=== PATIENT | male | born 1945 | race Caucasian/White ===

== ENCOUNTER 2018-09-22 01:14 | Inpatient (IN) | payer OTHER | END 2018-09-25 19:30 | LOC: TELE-EAST 09-24 13:01 → ER 01:14 → OVERFLOW 05:46 | PROC: B2111ZZ Fluoroscopy of Multiple Coronary Arteries using Low Osmolar Contrast (ICD-10-PCS; principal; ~2018-09-22) | PROC: 02703ZZ Dilation of Coronary Artery, One Artery, Percutaneous Approach (ICD-10-PCS; ~2018-09-22) | DX: I21.4 Non-ST elevation (NSTEMI) myocardial infarction (principal); E11.10 Type 2 diabetes mellitus with ketoacidosis without coma; N17.0 Acute kidney failure with tubular necrosis; G92 Toxic encephalopathy; J18.9 Pneumonia, unspecified organism; E87.1 Hypo-osmolality and hyponatremia; M46.90 Unspecified inflammatory spondylopathy, site unspecified; E11.22 Type 2 diabetes mellitus with diabetic chronic kidney disease; N18.9 Chronic kidney disease, unspecified; I13.10 Hypertensive heart and chronic kidney disease without heart failure, with stage 1 through stage 4 chronic kidney disease, or unspecified chronic kidney disease; Z98.61 Coronary angioplasty status; I25.10 Atherosclerotic heart disease of native coronary artery without angina pectoris; E86.0 Dehydration; R41.0 Disorientation, unspecified; Z91.19 Patient's noncompliance with other medical treatment and regimen ==

== ENCOUNTER 2019-03-07 15:49 | Inpatient (IN) | payer OTHER ==
[~2019-03-07] VITALS: Ht 167.6 cm; Wt 76.5 kg
[~2019-03-07 15:49] MED LIST: ASPI81CH43 PO; ATOR20TA50 PO; CLOP75TA28 PO; INSLANTI SC; INSREGI SC; LEVO500T21 PO
[2019-03-07] MEDS ORDERED: SODIUM CHLORIDE 0.9% 1,000 ML IV ONE ×3 (16:04→19:45)
[2019-03-07] MEDS ORDERED: InsuLIN REG 1unit/0.01ml Soln (100units/ml) IV ONE (16:15)
[2019-03-07 17:56] LABS: Basophils # (auto) 0 uL; Basophils % (auto) 0.6 % (0.0-2.0); Eosinophils # (auto) 0 uL; Eosinophils % (auto) 0.5 % (0.0-7.0); Hematocrit 46.7 % (41.0-53.0); Hemoglobin 15.8 g/dL (13.5-17.5); Lymphocytes # (auto) 0.9 uL; Lymphocytes % (auto) 11.1 % (10.0-50.0); Mean Corpuscular Hemoglobin 28.3 pg (28.0-32.0); Mean Corpuscular Hgb Conc. 33.8 g/dL (32.0-36.0); Mean Corpuscular Volume 83.6 fL (80.0-100.0); Monocytes # (auto) 0.7 uL; Monocytes % (auto) 8.1 % (0.0-12.0); Neutrophils # (auto) 6.4 uL; Neutrophils % (auto) 79.7 % (37.0-80.0); Platelet Count (auto) 167 10^3/uL (140-450); Red Blood Cells 5.59 10^6/uL (4.5-5.90); Red Cell Distribution Width 14.9 % (11.8-14.3)
[2019-03-07 17:57] LABS: Alanine Aminotransferase 22 U/L (16-61); Albumin 3.2 g/dL (3.4-5.0); Anion Gap 10 (5-15); Aspartate Aminotransferase 10 U/L (15-37); BUN/Creatinine Ratio 20.1; Blood Urea Nitrogen 32 mg/dL (7-18); Calcium 8.6 mg/dL (8.5-10.1); Carbon Dioxide 23 mmol/L (21-32); Chloride 100 mmol/L (98-107); GFR African American 55 mL/min; GFR Non-African American 45 mL/min; Potassium 4.5 mmol/L (3.5-5.1); Sodium 133 mmol/L (136-145)
[2019-03-07 18:02] LABS: Alkaline Phosphatase 121 U/L (45-117); Total Protein 7.1 g/dL (6.4-8.2)
[2019-03-07 18:10] LABS: Glucose 477 mg/dL (74-106)
[2019-03-07 18:23] LABS: INR 0.98 (0.9-1.15); Partial Thromboplastin Time 29.3 sec (23.64-32.05)
[2019-03-07] MEDS ORDERED: VANCOMYCIN PER PHARMACY IV SCH (19:45)
[2019-03-07] MEDS ORDERED: MORPHINE SULF INJ 2 MG/ML SYRINGE 1ML IV PRN (19:45)
[2019-03-07] MEDS ORDERED: NITROGLYCERIN 0.4 MG SL TAB SL PRN (19:45)
[2019-03-07] MEDS ORDERED: DEXTROSE (50%) 50ML SYRG IV PRN (19:45)
[2019-03-07] MEDS: ACCU-CHEK COMFORT CURVE STRIP VI SCH ×2 (20:00→23:31)
[2019-03-07] MEDS: InsuLIN REG 1unit/0.01ml Soln (100units/ml) SC SCH ×2 (20:00→23:30)
[2019-03-07] MEDS ORDERED: cefTRIAXone 1GM/50ML D5W 50 ML IV ONE (21:15)
[2019-03-07 21:30] VITALS: BP 150/74
[2019-03-07] MEDS ORDERED: VANCOMYCIN 1GM/250ML 250 ML IV ONE (21:30)
--- NOTE | 2019-03-07 21:30 | NUR ---
Telemetry admit from ER MICHA SANDERS admitted to Telemetry unit after SBAR received. Patient oriented to LEONILA ASCENCIO RN primary RN, unit, room, bed, and unit policies regarding patient care and visiting hours. Patient now on continuous telemetry monitoring, tele box # [id number]. Patient placed on bedside oxygen, weighed by bedscale and encouraged to call if they need something. All questions and concerns addressed, patient verbalized understanding.
[2019-03-07] MEDS: FAMOTIDINE 20 MG TAB PO SCH (21:54)
[2019-03-07 22:00] VITALS: BP 150/74
[2019-03-07] MEDS ORDERED: ATORVASTATIN 20 MG TAB PO SCH (22:00)
--- NOTE | 2019-03-08 03:00 | NUR ---
Patient accidentally pulled out IV to left hand when he was sleeping. Patient turned in bed and felt his IV pull and his IV got caught on the blanket and pulled out. IV catheter fully intact. Pressure dressing applied to site. Patient refused to have another IV put in at this time and just wants to sleep.
[2019-03-08] MEDS: ACCU-CHEK COMFORT CURVE STRIP VI SCH ×5 (03:30→19:40)
[2019-03-08] MEDS: InsuLIN REG 1unit/0.01ml Soln (100units/ml) SC SCH ×5 (03:31→19:41)
[2019-03-08 05:00] VITALS: BP 138/58
--- NOTE | 2019-03-08 05:56 | NUR ---
IV insertion IV access obtained to left wrist, via clean sterile technique by inserting 22 gauge catheter after first attempt. IV secured properly. No trauma to site. Patient tolerated procedure well.
--- NOTE | 2019-03-08 07:35 | NUR ---
Opening Shift Note Assumed care of patient, awake and alert. No S/S of distress/SOB or pain. Instructed on POC and to call for assist PRN, will continue to monitor for changes Q1hr and PRN.
[2019-03-08 07:44] LABS: Basophils # (auto) 0 uL; Basophils % (auto) 0.2 % (0.0-2.0); Eosinophils # (auto) 0 uL; Eosinophils % (auto) 0.2 % (0.0-7.0); Hematocrit 44.4 % (41.0-53.0); Hemoglobin 15.3 g/dL (13.5-17.5); Lymphocytes # (auto) 0.9 uL; Lymphocytes % (auto) 10.5 % (10.0-50.0); Mean Corpuscular Hemoglobin 28.3 pg (28.0-32.0); Mean Corpuscular Hgb Conc. 34.4 g/dL (32.0-36.0); Mean Corpuscular Volume 82.3 fL (80.0-100.0); Monocytes # (auto) 0.7 uL; Monocytes % (auto) 8.4 % (0.0-12.0); Neutrophils # (auto) 6.7 uL; Neutrophils % (auto) 80.7 % (37.0-80.0); Nucleated Red Blood Cells % 0.2 %; Platelet Count (auto) 179 10^3/uL (140-450); Red Blood Cells 5.39 10^6/uL (4.5-5.90); Red Cell Distribution Width 14.9 % (11.8-14.3); White Blood Cell 8.2 10^3/uL (4.4-10.8)
[2019-03-08 08:07] LABS: Albumin 2.8 g/dL (3.4-5.0); BUN/Creatinine Ratio 17.7; Calcium 8.6 mg/dL (8.5-10.1)
[2019-03-08 08:53] VITALS: BP 135/73
[2019-03-08] MEDS ORDERED: cefTRIAXone 1GM/50ML D5W 50 ML IV SCH ×2 (09:00)
[2019-03-08 09:33] LABS: Bilirubin, Total 0.3 mg/dL (0.2-1.0); Total Protein 6.6 g/dL (6.4-8.2)
[2019-03-08] MEDS ORDERED: ASPirin 81 mg TAB PO SCH (10:00)
[2019-03-08] MEDS ORDERED: INSULIN LANTUS (GLARGINE) 1 /0.01ml (100units/ml) SC SCH (10:00)
[2019-03-08] MEDS ORDERED: CLOPIDOGREL BISULFATE 75 MG TAB PO SCH (10:00)
[2019-03-08] MEDS: FAMOTIDINE 20 MG TAB PO SCH (10:04)
[2019-03-08 13:00] VITALS: BP 141/74
--- NOTE | 2019-03-08 16:20 | NUR ---
Significant other at bedside. Concerned about patient's finger and would like to know what the plan of care for it is. Dr. Pollock will round on patient as per hospitalist.
--- NOTE | 2019-03-08 17:20 | NUR ---
Cardiology Clearance Phone call received from Dr. Sharp regarding patient. States that patient is cleared for discharge and to follow up in outpatient. To take care of finger before cardiology procedure.
[2019-03-08 17:25] VITALS: BP 156/84
[2019-03-08] MEDS ORDERED: LEVO500T21 PO (17:26)
[2019-03-08] MEDS ORDERED: CLIN300C8 PO (17:26)
--- NOTE | 2019-03-08 17:50 | NUR ---
Discharge Orders As per Dr. Moscoso, patient can be discharge home pending clearance from Dr. Pollock. Dr. Sharp already cleared. Medications already called in to 24 hours [facility].
--- NOTE | 2019-03-08 19:46 | NUR ---
Paged Dr. Pollock to inform of patient discharge and needed clearance from him per Dr. Navarrete before patient can be discharged.
--- NOTE | 2019-03-08 19:59 | NUR ---
Dr. Pollock returned page: Per MD, patient is cleared to be discharged and patient is to follow up in a week as an outpatient.
--- NOTE | 2019-03-08 20:14 | NUR ---
LAURA Neff called patient next of kin Nicol (sister in law) and notified her of patient's discharge. Patient will be going home via taxi.
--- NOTE | 2019-03-08 21:20 | NUR ---
Patient discharged with all his belongings. Patient Alert and oriented. Patient transported via wheel chair to taxi. Patient entered taxi with no complaints or distress. Family aware.
[2019-03-08] MEDS ORDERED: VANCOMYCIN 1GM/250ML 250 ML IV SCH (22:00)
--- NOTE | 2019-03-09 11:00 | NUR ---
New Prescription Received call from [facility] regarding patient not receiving prescription. As per MD on 03/11 it was called in to his pharmacy. Called back number ([phone]) to confirm pharmacy, no answer. Also called number listed in computer, no answer. Left message and is awaiting call back.
== END 2019-03-08 21:30 | disposition home health service (06) | DRG 637 ==
LOC: EDBD 15:49 → ER 15:58 → TELE 15:59 → TELE-WESTW 21:36
PROVIDERS: ADMIT Nurse Practitioner Acute Care; ATTEND Internal Medicine
DX: E11.65 Type 2 diabetes mellitus with hyperglycemia (principal); G93.41 Metabolic encephalopathy; L02.512 Cutaneous abscess of left hand; I42.9 Cardiomyopathy, unspecified; E44.1 Mild protein-calorie malnutrition; I13.0 Hypertensive heart and chronic kidney disease with heart failure and stage 1 through stage 4 chronic kidney disease, or unspecified chronic kidney disease; E11.22 Type 2 diabetes mellitus with diabetic chronic kidney disease; E11.51 Type 2 diabetes mellitus with diabetic peripheral angiopathy without gangrene; N18.3 Chronic kidney disease, stage 3 (moderate); I50.9 Heart failure, unspecified; I48.91 Unspecified atrial fibrillation; E78.5 Hyperlipidemia, unspecified; L03.012 Cellulitis of left finger; E86.0 Dehydration; I25.10 Atherosclerotic heart disease of native coronary artery without angina pectoris; Z95.5 Presence of coronary angioplasty implant and graft; Z95.0 Presence of cardiac pacemaker; Z79.4 Long term (current) use of insulin; Z82.49 Family history of ischemic heart disease and other diseases of the circulatory system; Z91.14 Patient's other noncompliance with medication regimen; Z79.02 Long term (current) use of antithrombotics/antiplatelets; Z79.82 Long term (current) use of aspirin; Z83.3 Family history of diabetes mellitus; Z68.27 Body mass index [BMI] 27.0-27.9, adult; I25.2 Old myocardial infarction; Z79.899 Other long term (current) drug therapy
CPT/HCPCS: 36415; 70450; 71045; 73200; 80053; 80061; 80202; 80320; 82962; 83036; 83605; 83880; 84484; 85025; 85610; 85730; 87040; 93005; 93306; 93926; 96361; 96374; G0378; J0696; J1815

== ENCOUNTER 2019-06-30 17:24 | Inpatient (IN) | payer OTHER ==
[~2019-06-30] VITALS: Ht 167.6 cm; Wt 73.0 kg
[~2019-06-30 17:24] MED LIST changes: +CLIN300C8 PO
[2019-06-30 21:26] LABS: Basophils # (auto) 0.1 uL; Basophils % (auto) 0.8 % (0.0-2.0); Eosinophils # (auto) 0 uL; Eosinophils % (auto) 0.3 % (0.0-7.0); Hematocrit 43.1 % (41.0-53.0); Hemoglobin 14.5 g/dL (13.5-17.5); Lymphocytes # (auto) 1.1 uL; Lymphocytes % (auto) 12.5 % (10.0-50.0); Mean Corpuscular Hemoglobin 28.1 pg (28.0-32.0); Mean Corpuscular Hgb Conc. 33.5 g/dL (32.0-36.0); Mean Corpuscular Volume 83.8 fL (80.0-100.0); Monocytes # (auto) 0.8 uL; Monocytes % (auto) 9.4 % (0.0-12.0); Platelet Count (auto) 215 10^3/uL (140-450); Red Blood Cells 5.15 10^6/uL (4.5-5.90); Red Cell Distribution Width 14.3 % (11.8-14.3); White Blood Cell 9.1 10^3/uL (4.4-10.8)
[2019-06-30 21:37] LABS: Alanine Aminotransferase 19 U/L (16-61); Albumin 3.1 g/dL (3.4-5.0); Anion Gap 8 (5-15); Aspartate Aminotransferase 13 U/L (15-37); BUN/Creatinine Ratio 22.9; Blood Urea Nitrogen 38 mg/dL (7-18); Calcium 8.7 mg/dL (8.5-10.1); Carbon Dioxide 23 mmol/L (21-32); Chloride 105 mmol/L (98-107); GFR African American 52 mL/min; GFR Non-African American 43 mL/min; Potassium 4.5 mmol/L (3.5-5.1); Sodium 136 mmol/L (136-145)
[2019-06-30 21:40] LABS: Alkaline Phosphatase 110 U/L (45-117); Bilirubin, Total 0.4 mg/dL (0.2-1.0); Total Protein 7.5 g/dL (6.4-8.2)
[2019-06-30 21:46] LABS: Glucose 425 mg/dL (74-106)
[2019-07-01] MEDS ORDERED: SODIUM CHLORIDE 0.9% 1,000 ML IV ONE ×2 (01:45→02:00)
[2019-07-01] MEDS ORDERED: InsuLIN REG 1unit/0.01ml Soln (100units/ml) IV ONE ×2 (01:45→02:15)
[2019-07-01] MEDS ORDERED: DEXTROSE (50%) 50ML SYRG IV PRN (05:45)
[2019-07-01] MEDS ORDERED: TEMAZEPAM 15 MG CAP PO PRN (05:45)
[2019-07-01] MEDS ORDERED: ONDANSETRON HCL 4 MG/2 ML VIAL IV PRN (05:45)
[2019-07-01] MEDS: ACCU-CHEK COMFORT CURVE STRIP VI SCH ×3 (06:48→19:11)
[2019-07-01] MEDS: InsuLIN REG 1unit/0.01ml Soln (100units/ml) SC SCH ×3 (06:54→18:00)
[2019-07-01 07:29] LABS: Urine Bacteria NONE SEEN /hpf (None Seen); Urine Blood Negative /uL (Negative); Urine Mucus FEW (None Seen); Urine Specific Gravity 1.019 (1.001-1.035); Urine WBC 26 /hpf (0 - 3)
[2019-07-01] MEDS ORDERED: FUROSEMIDE 20 MG TAB PO SCH (10:00)
[2019-07-01] MEDS ORDERED: ENOXAPARIN SOD 40 MG/0.4 ML SYRINGE SC SCH (10:00)
[2019-07-01] MEDS: ENOXAPARIN SOD 40 MG/0.4 ML SYRINGE SC SCH (11:27)
[2019-07-01] MEDS: ASPirin 81 mg TAB PO SCH (11:27)
[2019-07-01] MEDS: CLOPIDOGREL BISULFATE 75 MG TAB PO SCH (11:27)
[2019-07-01] MEDS: FAMOTIDINE 20 MG TAB PO SCH ×2 (11:27→22:00)
--- NOTE | 2019-07-01 13:16 | NUR ---
MED SURG admit from [facility] admitted to MED SURG unit. Patient educated on unit, room, bed, and unit policies regarding patient care and visiting hours. Pt oriented x3. Bed in lowest and locked position with side rails up x2 and call light in reach. Encouraged to call if they need something. All questions and concerns addressed, patient verbalized understanding.
[2019-07-01 13:50] VITALS: BP 143/76
[2019-07-01 14:00] VITALS: BP 143/76
--- NOTE | 2019-07-01 16:00 | NUR ---
ATTEMPT TO CALL PATIENT FAMILY PATIENT UNABLE TO GIVE PROPER HISTORY AND ADMISSION INFORMATION. RETRIEVED PHONE NUMBER FOR PATIENTS SISTER IN LAW VIA PREVIOUS ADMISSION. PHONE NUMBER RETRIEVED IS UNABLE TO CONNECT AND THE RN IS UNABLE TO MAKE CONTACT WITH PATIENT FAMILY.
--- NOTE | 2019-07-01 16:02 | NUR ---
CALLED [facility] RETRIEVED MED RECORDS FROM [facility].
[2019-07-01] MEDS ORDERED: INSULIN LANTUS (GLARGINE) 1 /0.01ml (100units/ml) SC ONE (16:30)
[2019-07-01] MEDS ORDERED: LEVOFLOXACIN 250MG 50 ML IV ONE (16:30)
--- NOTE | 2019-07-01 16:50 | NUR ---
GLUCOSE MONITOR UNABLE TO READ PATIENTS WRISTBAND. PT GLUCOSE READING AT 86.
[2019-07-01 17:00] VITALS: BP 123/69
[2019-07-01] MEDS ORDERED: hydrALAZINE HCL 20 MG/ML VL IV PRN (17:00)
--- NOTE | 2019-07-01 17:00 | NUR ---
SPOKE TO DR. Sherri PERDOMO NOTIFIED THAT THE PATIENTS GLUCOSE LEVELS 86. MD AWARE. NEW ORDERS RECEIVED, READ BACK AND VERIFIED TO HOLD LANUTS AT THIS TIME. ACCORDING TO MD, IF THE PATIENTS GLUCOSE IS GREATER THAN 150, THEN GIVE THE 1630 SCHEDULED LANTUS. WILL ENDORSE TO HUY SANCHEZ.
--- NOTE | 2019-07-01 17:40 | NUR ---
Alvarado catheter insertion Patient assessed and determined to be in need of alvarado catheter. Order obtained from DR. Sherri PERDOMO MD. Patient educated on catheter and reason for insertion. All questions answered. Alvarado catheter 16 guage Grenadian inserted with clean sterile technique. Patient tolerated well.
--- NOTE | 2019-07-01 17:40 | NUR ---
PT PLACED ON TELEMETRY MONITORING.
--- NOTE | 2019-07-01 17:45 | NUR ---
IV removal LEFT AC IV DC'd with clean sterile technique, catheter fully intact. Pressure dressing applied to site. Patient tolerated well.
--- NOTE | 2019-07-01 18:00 | NUR ---
URINE SAMPLE SENT TO LAB
[2019-07-01 18:47] LABS: Basophils # (auto) 0.1 uL; Basophils % (auto) 1.1 % (0.0-2.0); Eosinophils # (auto) 0 uL; Eosinophils % (auto) 0.6 % (0.0-7.0); Hematocrit 40.7 % (41.0-53.0); Hemoglobin 13.6 g/dL (13.5-17.5); Lymphocytes # (auto) 1.1 uL; Lymphocytes % (auto) 18.4 % (10.0-50.0); Mean Corpuscular Hemoglobin 28.1 pg (28.0-32.0); Mean Corpuscular Hgb Conc. 33.3 g/dL (32.0-36.0); Mean Corpuscular Volume 84.5 fL (80.0-100.0); Monocytes # (auto) 0.6 uL; Monocytes % (auto) 9.8 % (0.0-12.0); Neutrophils # (auto) 4.1 uL; Neutrophils % (auto) 70.1 % (37.0-80.0); Nucleated Red Blood Cells % 0.1 %; Platelet Count (auto) 188 10^3/uL (140-450); Red Blood Cells 4.82 10^6/uL (4.5-5.90); Red Cell Distribution Width 14.2 % (11.8-14.3); White Blood Cell 5.8 10^3/uL (4.4-10.8)
[2019-07-01 18:57] LABS: Anion Gap 11 (5-15); BUN/Creatinine Ratio 23.4; Blood Urea Nitrogen 29 mg/dL (7-18); Calcium 8.3 mg/dL (8.5-10.1); Carbon Dioxide 19 mmol/L (21-32); Chloride 108 mmol/L (98-107); GFR African American 73 mL/min; GFR Non-African American 60 mL/min; Glucose 105 mg/dL (74-106); Potassium 3.9 mmol/L (3.5-5.1); Sodium 138 mmol/L (136-145)
--- NOTE | 2019-07-01 19:30 | NUR ---
ENDORSED CARE TO NIGHT RNKORI. RN AWARE OF PT SITUATION AND DR. PERDOMO ORDERS FOR LANTUS IF THE PATIENTS GLUCOSE INCREASES. PT BED IN LOWEST AND LOCKED POSITION WITH SIDE RAILS UP X2, CALL LIGHT IN REACH AND BED ALARM ON.
[2019-07-01] MEDS ORDERED: FURO20TA3 PO (19:44)
[2019-07-01 20:00] VITALS: BP 140/57
--- NOTE | 2019-07-01 20:00 | NUR ---
Opening Shift Note Assumed care of patient, awake and alert. No S/S of distress/SOB or pain. Instructed on POC and to call for assist PRN, will continue to monitor for changes Q1hr and PRN.
[2019-07-01 21:49] VITALS: BP 140/57
[2019-07-01] MEDS: ATORVASTATIN 20 MG TAB PO SCH (23:12)
[2019-07-02] MEDS: InsuLIN REG 1unit/0.01ml Soln (100units/ml) SC SCH ×5 (00:26→17:48)
[2019-07-02] MEDS: ACCU-CHEK COMFORT CURVE STRIP VI SCH ×4 (00:26→17:48)
[2019-07-02 05:00] VITALS: BP 158/79
[2019-07-02 06:25] LABS: Basophils # (auto) 0.1 uL; Basophils % (auto) 1.4 % (0.0-2.0); Eosinophils # (auto) 0 uL; Eosinophils % (auto) 0.7 % (0.0-7.0); Hematocrit 38.7 % (41.0-53.0); Hemoglobin 13.3 g/dL (13.5-17.5); Lymphocytes # (auto) 1.3 uL; Lymphocytes % (auto) 21.3 % (10.0-50.0); Mean Corpuscular Hemoglobin 28.6 pg (28.0-32.0); Mean Corpuscular Hgb Conc. 34.3 g/dL (32.0-36.0); Mean Corpuscular Volume 83.3 fL (80.0-100.0); Monocytes # (auto) 0.7 uL; Monocytes % (auto) 11.6 % (0.0-12.0); Neutrophils # (auto) 3.9 uL; Nucleated Red Blood Cells % 0.1 %; Platelet Count (auto) 177 10^3/uL (140-450); Red Blood Cells 4.65 10^6/uL (4.5-5.90); Red Cell Distribution Width 13.9 % (11.8-14.3)
[2019-07-02 06:40] LABS: BUN/Creatinine Ratio 23.9; Calcium 8.4 mg/dL (8.5-10.1); Potassium 3.9 mmol/L (3.5-5.1)
--- NOTE | 2019-07-02 06:57 | NUR ---
Closing Note: Patient sleeping with his sheet over his face. He was informed that it was time for his accu-check. Patient adamantly refused
--- NOTE | 2019-07-02 07:20 | NUR ---
OPENING NOTE ASSUMED CARE OF PT. ALERT AND ORIENTED. NO S/S OF SOB/DISTRESS NOTED. PT DENIES ANY PAIN. SAFETY PRECAUTIONS IN PLACE. BED SET TO LOWEST POSITION/LOCKED. BEDSIDE RAILS UP X2. CALL LIGHT WITH IN REACH. SITTER AT BEDSIDE. INSTRUCTED PT TO CALL FOR ASSISTANCE. UPDATE ON POC. WILL CONTINUE TO MONITOR Q1HR AND PRN.
[2019-07-02 09:00] VITALS: BP 99/72
[2019-07-02] MEDS: ASPirin 81 mg TAB PO SCH (09:47)
[2019-07-02] MEDS: LEVOFLOXACIN 500MG 100 ML IV SCH (09:47)
[2019-07-02] MEDS: ENOXAPARIN SOD 40 MG/0.4 ML SYRINGE SC SCH (09:48)
[2019-07-02] MEDS: FAMOTIDINE 20 MG TAB PO SCH ×2 (09:48→21:13)
[2019-07-02] MEDS: CLOPIDOGREL BISULFATE 75 MG TAB PO SCH (09:48)
[2019-07-02] MEDS: INSULIN LANTUS (GLARGINE) 1 /0.01ml (100units/ml) SC SCH (10:21)
[2019-07-02] MEDS: ACETAMINOPHEN 325 MG TAB PO PRN (10:22)
--- NOTE | 2019-07-02 11:00 | NUR ---
WOUND CARE NOTE: Wound care in to see patient per wound care request regarding " scrotal area redness and skin risk score 12". Patient is 74 y/o male with admitting diagnosis of Uncontrolled DM, Failure To Thrive. Patient with history of A Fib, CAD, high lipids. Patient is resting in bed in Rm. 272A. He's awake, alert, able to follow simple direction but not fully oriented. He's able to assist in turning and repositioning and his current Shlomo score is 17. Skin assessment done with the assistance of patient' s nurse, LAURA Carson. No wound noted other than mild erythema to patient's scrotal and intragluteal fold consistent with intertriginous rash. Staff initiated cleaning and application of Barrier cream to sacrum and perineum per MD order. No pressure injury noted. Patient tolerated well, repositioned for comfort. Sitter at bedside. No further wound care monitoring needed at this time. RECOMMENDATION: Nursing to continue Daily/PRN cleaning and application of Barrier cream to sacrum and perineum per MD order, frequent turning and repositioning schedule as condition permits, redistribute pressure points with pillows, elevate heels on pillows, new wound consult in case of active wound, pressure injury, Shlomo score of 12 and below. Addendum: 07/02/19 at 1622 by Lois Urias RN Amended: Links added.
[2019-07-02] MEDS ORDERED: SODIUM BICARBONATE 50ML VIAL 50 ML, POTASSIUM CHLORIDE 20 MEQ in SOD CHL 0.45% 1,000 ML IV SCH (13:15)
[2019-07-02] MEDS ORDERED: SODIUM BICARBONATE 50ML VIAL 50 ML in SOD CHL 0.45% WITH 20MEQ KCL 1,000 ML IV SCH (15:30)
[2019-07-02 16:02] LABS: Protein, Urine 166.8 mg/dL (0.0-11.9)
[2019-07-02] MEDS: SODIUM BICARBONATE 50ML VIAL 50 ML in SOD CHL 0.45% WITH 20MEQ KCL 1,000 ML IV SCH (18:06)
--- NOTE | 2019-07-02 19:26 | NUR ---
Opening Shift Note Assumed care of patient, awake and alert x4. No S/S of distress/SOB or pain. Baig is patent/draining and hung below bladder. Sitter is at bedside for safety. Call light is within reach, side rails up x3, bed is in lowest position. Instructed on POC and to call for assist PRN, will continue to monitor for changes Q1hr and PRN.
[2019-07-02] MEDS: ATORVASTATIN 20 MG TAB PO SCH (21:13)
[2019-07-03] MEDS: ACCU-CHEK COMFORT CURVE STRIP VI SCH ×5 (00:13→23:58)
[2019-07-03] MEDS: InsuLIN REG 1unit/0.01ml Soln (100units/ml) SC SCH ×5 (00:13→23:58)
[2019-07-03] MEDS: SODIUM BICARBONATE 50ML VIAL 50 ML in SOD CHL 0.45% WITH 20MEQ KCL 1,000 ML IV SCH ×2 (01:14→15:37)
[2019-07-03 05:47] LABS: Basophils # (auto) 0.1 uL; Basophils % (auto) 1.5 % (0.0-2.0); Eosinophils # (auto) 0.1 uL; Eosinophils % (auto) 2.1 % (0.0-7.0); Hematocrit 39.4 % (41.0-53.0); Hemoglobin 13.2 g/dL (13.5-17.5); Lymphocytes # (auto) 1.4 uL; Lymphocytes % (auto) 27.5 % (10.0-50.0); Mean Corpuscular Hemoglobin 28.4 pg (28.0-32.0); Mean Corpuscular Hgb Conc. 33.4 g/dL (32.0-36.0); Mean Corpuscular Volume 84.9 fL (80.0-100.0); Monocytes # (auto) 0.6 uL; Monocytes % (auto) 11.7 % (0.0-12.0); Neutrophils % (auto) 57.2 % (37.0-80.0); Platelet Count (auto) 194 10^3/uL (140-450); Red Blood Cells 4.64 10^6/uL (4.5-5.90); Red Cell Distribution Width 14.3 % (11.8-14.3); White Blood Cell 5.2 10^3/uL (4.4-10.8)
[2019-07-03 06:13] LABS: Potassium 4.2 mmol/L (3.5-5.1)
[2019-07-03 06:24] LABS: Calcium 8.1 mg/dL (8.5-10.1)
--- NOTE | 2019-07-03 07:20 | NUR ---
OPENING NOTE ASSUMED CARE OF PT. ALERT AND ORIENTED. NO S/S OF SOB/DISTRESS NOTED. PT DENIES ANY PAIN. SAFETY PRECAUTIONS IN PLACE. BED SET TO LOWEST POSITION/LOCKED. BEDSIDE RAILS UP X2. CALL LIGHT WITH IN REACH. SITTER AT BEDSIDE FOR SAFETY. INSTRUCTED PT TO CALL FOR ASSISTANCE. UPDATE ON POC. WILL CONTINUE TO MONITOR Q1HR AND PRN.
[2019-07-03 09:00] VITALS: BP 131/58
[2019-07-03] MEDS: ENOXAPARIN SOD 40 MG/0.4 ML SYRINGE SC SCH (10:00)
--- NOTE | 2019-07-03 10:00 | NUR ---
IV insertion IV access obtained, via clean sterile technique by inserting 20 gauge catheter at right FA after 1 attempt(s). IV secured properly. No trauma to site. Patient tolerated procedure well. 1005 IV removal Right FA 20 gauge IV cath DC'd with clean technique, catheter fully intact. Pressure dressing applied to site. Patient tolerated procedure well.
[2019-07-03] MEDS: CLOPIDOGREL BISULFATE 75 MG TAB PO SCH (10:54)
[2019-07-03] MEDS: LEVOFLOXACIN 500MG 100 ML IV SCH (10:54)
[2019-07-03] MEDS: ASPirin 81 mg TAB PO SCH (10:54)
[2019-07-03] MEDS: FAMOTIDINE 20 MG TAB PO SCH ×2 (10:54→21:33)
[2019-07-03] MEDS: INSULIN LANTUS (GLARGINE) 1 /0.01ml (100units/ml) SC SCH (11:00)
--- NOTE | 2019-07-03 12:13 | NUR ---
NUTRITION CONSULT/ASSESSMENT NOTES Please refer to link notes of nutrition screen form filed under the intervention section of the plan of care for further details. Est. Needs: 1800 kcal to 2150 kcal (25-30 kcal/kgBW), 71 gms to 86 gms pro (0.8-1.0 gms/kgBW). Will continue to monitor pertinent labs and reassess nutrient need prn Thank you for this consult. Addendum: 07/03/19 at [address] Amended: Links added.
[2019-07-03 13:00] VITALS: BP 145/66
--- NOTE | 2019-07-03 16:40 | NUR ---
TELE PSYCH TELE PSYCH CONSULTATION PLACE.
[2019-07-03 17:00] VITALS: BP 139/73
--- NOTE | 2019-07-03 19:26 | NUR ---
Opening Shift Note Assumed care of patient, awake and alert x4. No S/S of distress/SOB or pain. Baig is patent/draining darkamber/bloody urine and is hung below bladder. Sitter is at bedside for safety. Call light is within reach, side rails up x2, bed is in lowest position. Instructed on POC and to call for assist PRN, will continue to monitor for changes Q1hr and PRN.
[2019-07-03] MEDS: ATORVASTATIN 20 MG TAB PO SCH (21:33)
[2019-07-03 22:00] VITALS: BP 150/81
--- NOTE | 2019-07-03 22:45 | NUR ---
IV insertion to right hand IV access obtained, via clean sterile technique by inserting 22 gauge catheter at the right hand after 3 attempt(s). IV secured properly. No trauma to site. Patient tolerated well.
--- NOTE | 2019-07-03 22:49 | NUR ---
BP reassessed BP is now 141/81, will continue to monitor.
--- NOTE | 2019-07-03 22:50 | NUR ---
IV removal from LFA due to infiltration IV DC'd with clean sterile technique, catheter fully intact. Pressure dressing applied to site. Patient tolerated well.
[2019-07-03] MEDS: ACETAMINOPHEN 325 MG TAB PO PRN (23:58)
[2019-07-04 05:00] VITALS: BP 144/81
[2019-07-04 05:08] LABS: Basophils # (auto) 0.1 uL; Basophils % (auto) 1.1 % (0.0-2.0); Eosinophils # (auto) 0.1 uL; Eosinophils % (auto) 1.5 % (0.0-7.0); Hematocrit 39.6 % (41.0-53.0); Hemoglobin 13.5 g/dL (13.5-17.5); Lymphocytes # (auto) 1.2 uL; Lymphocytes % (auto) 23.4 % (10.0-50.0); Mean Corpuscular Hemoglobin 28.7 pg (28.0-32.0); Mean Corpuscular Volume 84.3 fL (80.0-100.0); Monocytes # (auto) 0.6 uL; Monocytes % (auto) 12.1 % (0.0-12.0); Neutrophils # (auto) 3.1 uL; Neutrophils % (auto) 61.9 % (37.0-80.0); Nucleated Red Blood Cells % 0.1 %; Platelet Count (auto) 196 10^3/uL (140-450); Red Cell Distribution Width 14.2 % (11.8-14.3)
[2019-07-04 05:25] LABS: Albumin 2.9 g/dL (3.4-5.0); Calcium 8.4 mg/dL (8.5-10.1); Magnesium 2.1 mg/dL (1.6-2.6); Potassium 3.7 mmol/L (3.5-5.1)
[2019-07-04 05:29] LABS: BUN/Creatinine Ratio 20.7; Bilirubin, Total 0.4 mg/dL (0.2-1.0); Phosphorus 2.7 mg/dL (2.5-4.90); Total Protein 6.1 g/dL (6.4-8.2)
[2019-07-04] MEDS: InsuLIN REG 1unit/0.01ml Soln (100units/ml) SC SCH ×3 (06:00→18:06)
[2019-07-04] MEDS: ACCU-CHEK COMFORT CURVE STRIP VI SCH ×3 (06:00→18:06)
--- NOTE | 2019-07-04 06:21 | NUR ---
Patient refused 0600 blood sugar check.
--- NOTE | 2019-07-04 06:48 | NUR ---
Patient refused an accucheck to verify the blood sugar level which was recently drawn by laboratory (serum glucose: 57). Explained to the patient the risks associated with having low blood sugar, he stated, "I don't care, I already don't feel well. I'm not going to drink that juice you probably poisoned it." Juice, milk, and crackers were offered to the patient. He accepted crackers and ate them, there is a juice and crackers at bedside. An aide is at bedside for safety.
[2019-07-04 09:20] VITALS: BP 154/61
[2019-07-04] MEDS: FAMOTIDINE 20 MG TAB PO SCH (10:39)
[2019-07-04] MEDS: ASPirin 81 mg TAB PO SCH (10:39)
[2019-07-04] MEDS: LEVOFLOXACIN 500MG 100 ML IV SCH (10:39)
[2019-07-04] MEDS: CLOPIDOGREL BISULFATE 75 MG TAB PO SCH (10:39)
[2019-07-04] MEDS: ENOXAPARIN SOD 40 MG/0.4 ML SYRINGE SC SCH (10:40)
[2019-07-04] MEDS: INSULIN LANTUS (GLARGINE) 1 /0.01ml (100units/ml) SC SCH (10:40)
--- NOTE | 2019-07-04 11:01 | NUR ---
PT Patient refused to be OOB during morning visit due to lack of sleep. Addendum: 07/04/19 at 1102 by JULIETA PERALTA PTT Amended: Links added.
[2019-07-04 13:00] VITALS: BP 159/69
[2019-07-04 15:52] VITALS: BP 159/69
--- NOTE | 2019-07-04 16:15 | NUR ---
spoke to Verene from home health care social worker according to case management at [facility] there needs to be clarification with the physical therapy order. As of now, patient does not qualify for SNF placement with his ambulation assessment
--- NOTE | 2019-07-04 16:20 | NUR ---
GEETA VITALE RE: SNF TRANSFER. AWAITING CALL BACK
--- NOTE | 2019-07-04 16:25 | NUR ---
PAGED MD Sherri VITALE ACCORDING TO . RN NEED TO VERIFY WITH PHYSICAL THERAPY AND WHAT THEY RECOMMEND.
--- NOTE | 2019-07-04 16:28 | NUR ---
CONTACTED JULIETA FROM PHYSICAL THERAPY. ACCORDING TO JULIETA RECOMMENDATION FOR SNF IS STILL OKAY. ACCORDING TO JULIETA THE PT STILL HAS UNSTEADY GAIT.
--- NOTE | 2019-07-04 16:32 | NUR ---
GEETA VITALE RE: THE UPDATED INFORMATION FROM PHYSICAL THERAPY. AWAITING CALL BACK
[2019-07-04 17:00] VITALS: BP 141/75
--- NOTE | 2019-07-04 17:42 | NUR ---
FAMILY CONTACT CONTACTED SISTER-IN LAW LUCIA. LUCIA IS UNWILLING TO ALLOW PT BACK TO HER HOUSE AT THIS TIME. PT UPDATED ON LUCIA DECISION AND IS NOW WILLING TO GO TO SNF
--- NOTE | 2019-07-04 17:45 | NUR ---
MD VITALE UPDATED ON PT LIVING SITUATION. SAID HE WILL CALL CHO[facility] [employer] MECHANIC AND UPDATE HER ON THE PATIENT STATUS.
--- NOTE | 2019-07-04 17:45 | NUR ---
PT EDUCATED ABOUT BENEFITS OF GOING TO SNF AND CONSEQUENCES OF DENYING TREATMENT. PT VERBALIZED UNDERSTANDING AND IS WILLING TO GO TO SNF
--- NOTE | 2019-07-04 17:58 | NUR ---
GORDON NOTIFIED OF PT LIVING SITUATION. PER GORDON SHE WILL CALL [facility] AND VERIFY THE ROOM AND PLACEMENT.
--- NOTE | 2019-07-04 19:15 | NUR ---
Opening Shift Note Report received from day shift RN. Assumed care of patient, awake sitting in bed and A&O x3. patient reorientated to time. No S/S of distress/SOB noted and denies pain at this time. Sitter at bedside for safety. Bed locked and left in the lowest position with side rails up x2. Instructed on POC and to call for assist PRN, will continue to monitor for changes Q1hr and PRN.
--- NOTE | 2019-07-04 21:07 | NUR ---
DISCHARGE Discharge instructions given as ordered. All questions and concerns addressed. Patient verbalized understanding. IV removed with catheter intact, pressure dressing applied. Medication reconciliation form completed and copy given to patient. Telemetry unit returned. Report given to Elizabeth. Patient transported with all personal belongings. No distress noted at time of departure.
--- NOTE | 2019-07-05 11:53 | NUR ---
assessment re: ss consult Patient discharged prior to being assessed. Addendum: 07/05/19 at 1154 by Beatrice SMITH Amended: Links added.
--- NOTE | 2019-07-05 17:14 | NUR ---
Patient consult orders were assumed by electronic maintenance supervisor Carmen who will input notes regarding discharge plan.
== END 2019-07-04 21:07 | DRG 637 ==
LOC: EDUNIT# 17:24 → ER 17:24 → EDBD 17:24 → OVERFLOW 17:25 → WEST WING 07-01 16:40 → TELE-WESTW 07-01 16:59
PROVIDERS: ADMIT Nurse Practitioner; ATTEND Internal Medicine
DX: E11.65 Type 2 diabetes mellitus with hyperglycemia (principal); G93.41 Metabolic encephalopathy; N17.0 Acute kidney failure with tubular necrosis; J18.9 Pneumonia, unspecified organism; E87.2 Acidosis; N39.0 Urinary tract infection, site not specified; E86.0 Dehydration; R62.7 Adult failure to thrive; Z95.0 Presence of cardiac pacemaker; N18.3 Chronic kidney disease, stage 3 (moderate); I13.10 Hypertensive heart and chronic kidney disease without heart failure, with stage 1 through stage 4 chronic kidney disease, or unspecified chronic kidney disease; E11.22 Type 2 diabetes mellitus with diabetic chronic kidney disease; F09 Unspecified mental disorder due to known physiological condition; I70.0 Atherosclerosis of aorta; M19.90 Unspecified osteoarthritis, unspecified site; R29.700 NIHSS score 0; Z79.82 Long term (current) use of aspirin; Z79.4 Long term (current) use of insulin
CPT/HCPCS: 36415; 70450; 71045; 76775; 80048; 80053; 81001; 82570; 82962; 83036; 83605; 83735; 84100; 84156; 84300; 85025; 87040; 87086; 93005; 96361; 96374; 97116; 97163; 97530; G0378; J1815; J1956